=== PATIENT | male | born 1970 | race African-American/Black ===

== ENCOUNTER 2022-03-22 12:47 | Inpatient (IN) | payer MEDICARE, OTHER ==
[~2022-03-22] VITALS: Ht 182.9 cm; Wt 97.1 kg
--- NOTE | 2022-03-22 12:55 | NUR ---
BIBS C/O CHEST PAIN X 3 WEEKS RADIATING TO RIGHT SHOULDER AND JAW. AMBULATORY, PLACED ON BED, AAOX4, BREATHING EVEN AND UNLABORED, SATURATING AT 97%RA, ATTACHED TO MONITOR SHOWS NORMAL SINUS RHYTHYM IA-78.
--- NOTE | 2022-03-22 13:06 | NUR ---
TO ER 13 FOR MD BOYKIN,EKG,MONITOR
--- NOTE | 2022-03-22 13:23 | NUR ---
SALINE LOCK ESTABLISHED, BLOOD DRAWN AND SENT TO LAB
[2022-03-22 13:30] LABS: BASOPHILS % (AUTO) 0.6 % (0.0-2.0); EOSINOPHILS % (AUTO) 1.8 % (0.0-6.0); HEMATOCRIT 39 % (39-51); HEMOGLOBIN 12.7 g/dL (13.5-17.5); LYMPHOCYTES # (AUTO) 1.6 K/uL (0.8-4.8); LYMPHOCYTES % (AUTO) 35.1 % (20.0-44.0); MEAN CORPUSCULAR HGB CONC 32 g/dl (31.0-36.0); MEAN CORPUSCULAR VOLUME 84 fL (80-96); MONOCYTES # (AUTO) 0.4 K/uL (0.1-1.30); MONOCYTES % (AUTO) 9.1 % (2.0-12.0); NEUTROPHILS # (AUTO) 2.5 K/uL (1.8-8.9); NEUTROPHILS % (AUTO) 53.4 % (43.0-81.0); PLATELET COUNT (AUTO) 237 K/uL (150-450); RED BLOOD CELL COUNT(AUTO) 4.66 MIL/uL (4.5-6.0); WHITE BLOOD COUNT (AUTO) 4.6 K/uL (4.3-11.0)
[2022-03-22 13:45] LABS: CALCIUM, SERUM 9.4 mg/dL (8.5-10.1); CARBON DIOXIDE 28 mmol/L (21-32); CHLORIDE 103 mmol/L (98-107); CREATININE 1.1 mg/dL (0.6-1.3); GLUCOSE 165 mg/dL (74-106); POTASSIUM 3.6 mmol/L (3.5-5.1); SODIUM SERUM 140 mmol/L (136-145); UREA NITROGEN, BLOOD 10 mg/dL (7-18)
[2022-03-22] MEDS ORDERED: MORPHINE SULFATE INJ 4 MG/ML DISP.SYRIN ONE ×2 (13:49→18:27)
[2022-03-22] MEDS ORDERED: CLONIDINE HCL 0.1 MG TABLET ONE (13:49)
--- NOTE | 2022-03-22 13:59 | NUR ---
COVID SWAB DONE AND SENT TO LAB
[2022-03-22] MEDS ORDERED: MORPHINE SULFATE INJ 2 MG/ML DISP.SYRIN IV ONE (14:00)
[2022-03-22] MEDS ORDERED: CLONIDINE HCL 0.1 MG TABLET PO ONE (14:00)
--- NOTE | 2022-03-22 14:39 | NUR ---
CALLED [facility] CARDIOLOGY DR. YEPEZ SPEAKING WITH DR. PABON.
[2022-03-22] MEDS ORDERED: COLE625T14 PO (14:45)
[2022-03-22] MEDS ORDERED: ALBU8.5H8 INH (14:45)
[2022-03-22] MEDS ORDERED: LISI20TA30 PO (14:45)
[2022-03-22] MEDS ORDERED: ASPIRIN 325 MG TABLET ONE (14:56)
--- NOTE | 2022-03-22 14:59 | NUR ---
[facility] CALLED ASSESSMENT DIRECTOR PAGED.
[2022-03-22] MEDS ORDERED: ACETAMINOPHEN 325 MG TABLET PO PRN (15:00)
[2022-03-22] MEDS ORDERED: ASPIRIN 325 MG TABLET PO ONE (15:00)
[2022-03-22] MEDS ORDERED: Z GUARD REMEDY 4 OZ OINT TP PRN (15:00)
[2022-03-22] MEDS ORDERED: MAGNESIUM HYDROXIDE 30 ML UDC PO PRN (15:00)
[2022-03-22] MEDS ORDERED: ZOLPIDEM TARTRATE 5 MG TABLET PO PRN (15:00)
[2022-03-22] MEDS ORDERED: NITROGLYCERIN 0.4 MG/TAB BOTTLE SL ONE (15:00)
--- NOTE | 2022-03-22 15:24 | NUR ---
PATIENT TAKEN TO CT VIA [facility]
[2022-03-22] MEDS ORDERED: NITROGLYCERIN 0.4 MG/TAB BOTTLE ONE (15:54)
[2022-03-22] MEDS ORDERED: ENOXAPARIN SODIUM 40 MG/0.4 ML DISP.SYRIN SQ ONE (15:54)
[2022-03-22] MEDS: ENOXAPARIN SODIUM 40 MG/0.4 ML DISP.SYRIN SQ SCH (15:55)
[2022-03-22] MEDS ORDERED: DEXTROSE 50%-WATER 50 ML DISP.SYRIN IV PRN (16:00)
[2022-03-22] MEDS: LISINOPRIL (20MG) 20 MG TABLET PO SCH (17:00)
[2022-03-22] MEDS ORDERED: LISINOPRIL (20MG) 20 MG TABLET ONE (17:07)
[2022-03-22] MEDS: BLOOD SUGAR DIAGNOSTIC 1 EACH STRIP IN SCH ×2 (17:30→23:25)
[2022-03-22] MEDS: MORPHINE SULFATE INJ 2 MG/ML DISP.SYRIN IV PRN (18:32)
--- NOTE | 2022-03-22 18:44 | NUR ---
DR YEPEZ AT BEDSIDE
--- NOTE | 2022-03-22 19:46 | NUR ---
ROOM 108
--- NOTE | 2022-03-22 20:58 | NUR ---
REPORT GIVEN TO DAMIEN PERKINS 108 FOR MIHIR
--- NOTE | 2022-03-22 21:05 | NUR ---
RN NOTES ADMITTED A 51 Y/O MALE PATIENT FROM ER VIA [facility]. ON ROOM AIR SATING 98% NO SOB NO DISTRESS NOTED AT THIS TIME.WITH IV ACCESS AT R AC # 20 PATENT FLUSHES WELL. VITAL SIGNS TAKEN AND RECORDED AFEBRILE. PATIENT COMPLAIN OF PAIN 0N NECK AND CHEST. BODY ASSESSMENT AND BELONGIN CHECKED AND RECORDED. ALL SAFETY MEASURES IN PLACE AT ALL TIMES. HOB ELEVATED. CALL LIGHT WITHIN REACH. WILL CLOSELY MONITOR TYHE PATIENT CLOSELY
[2022-03-22] MEDS: METOPROLOL TARTRATE 25 MG TABLET PO SCH (21:28)
[2022-03-22] MEDS: INSULIN REGULAR, HUMAN 100 UNIT/ML 3 ML VIAL SQ PRN (23:25)
[2022-03-23] VITALS: BP 108/64
[2022-03-23] MEDS: MORPHINE SULFATE INJ 2 MG/ML DISP.SYRIN IV PRN ×5 (00:24→22:26)
[2022-03-23 04:00] VITALS: BP 98/61
--- NOTE | 2022-03-23 06:49 | NUR ---
RN NOTES PATIENT REMAINS STABLE NO SIGNIFICANT CHANGES IN HEALTH CONDITION. ALL DUE MEDS GIVEN ORDER. ON ROOM AIR SATING 97% NO SOB NO DISTRESS NOTED AT THIS TIME. ALL SAFETY MEASURES IN PLACE AT ALL TIMES. HOB ELEVATED. CALL LIGHT WITHIN REACH. WILL ENDORSED TO MORNING SHIFT FOR MIHIR
[2022-03-23 07:29] LABS: BASOPHILS % (AUTO) 0.9 % (0.0-2.0); EOSINOPHILS % (AUTO) 2.4 % (0.0-6.0); HEMATOCRIT 38 % (39-51); HEMOGLOBIN 12.3 g/dL (13.5-17.5); LYMPHOCYTES # (AUTO) 1.6 K/uL (0.8-4.8); LYMPHOCYTES % (AUTO) 36.9 % (20.0-44.0); MEAN CORPUSCULAR HGB CONC 32 g/dl (31.0-36.0); MEAN CORPUSCULAR VOLUME 85 fL (80-96); MONOCYTES # (AUTO) 0.5 K/uL (0.1-1.30); MONOCYTES % (AUTO) 11.9 % (2.0-12.0); NEUTROPHILS # (AUTO) 2.1 K/uL (1.8-8.9); NEUTROPHILS % (AUTO) 47.9 % (43.0-81.0); PLATELET COUNT (AUTO) 208 K/uL (150-450); RED BLOOD CELL COUNT(AUTO) 4.49 MIL/uL (4.5-6.0); WHITE BLOOD COUNT (AUTO) 4.4 K/uL (4.3-11.0)
--- NOTE | 2022-03-23 07:30 | NUR ---
RN/ OPENING NOTE RECEIVED REPORT FROM NIGHT RN. PATIENT A&OX4 RESTING ON BED. PATIENT SATTING AT 98%B ON ROOM AIR. sr, skin intact. DIET CONSISTENT CARB. IV RAC #20 SL PATENT AND INTACT. ALL SAFETY FALL PRECAUTIONS IN PLACE BED LOCK ON, BED IN LOWEST POSITION, SIDE RAILS UP, BED ALARM ON, CALL LIGHT WITHIN REACH. WILL CONTINUE TO MONITOR.
[2022-03-23 08:00] VITALS: BP 104/66
[2022-03-23] MEDS: BLOOD SUGAR DIAGNOSTIC 1 EACH STRIP IN SCH ×4 (08:24→21:45)
[2022-03-23] MEDS: PANTOPRAZOLE 40 MG VIAL IV SCH (08:25)
[2022-03-23] MEDS: MAG HYDROX/AL HYDROX/SIMETH 30 ML UDC PO PRN (08:28)
[2022-03-23 08:29] LABS: CALCIUM, SERUM 9.4 mg/dL (8.5-10.1); CREATININE 1.1 mg/dL (0.6-1.3); MAGNESIUM 2.3 mg/dL (1.8-2.4); PHOSPHORUS 4.5 mg/dL (2.5-4.9); POTASSIUM 4.1 mmol/L (3.5-5.1)
[2022-03-23 08:35] LABS: THYROID STIMULATING HORMONE 2.009 uIU/mL (0.358-3.74)
[2022-03-23] MEDS: METOPROLOL TARTRATE 25 MG TABLET PO SCH ×2 (09:00→21:32)
[2022-03-23] MEDS ORDERED: ASPIRIN 81 MG TAB.CHEW PO SCH (09:00)
[2022-03-23] MEDS: LISINOPRIL (20MG) 20 MG TABLET PO SCH ×2 (09:00→17:00)
--- NOTE | 2022-03-23 09:44 | NUR ---
RN/ NOTE PATIENT'S MEDICATION LOPRESSOR AND LISINOPRIL DUE TO PATIENT'S BLOOD PRESSURE BEING TO LOW 104/66.
[2022-03-23 12:00] VITALS: BP 104/61
[2022-03-23] MEDS: ENOXAPARIN SODIUM 40 MG/0.4 ML DISP.SYRIN SQ SCH (15:44)
[2022-03-23 16:00] VITALS: BP 109/69
--- NOTE | 2022-03-23 17:37 | NUR ---
RN/NOTE LISINOPRIL HELD DUE TO LOW BLOOD PRESSURE 109/69.
--- NOTE | 2022-03-23 18:59 | NUR ---
RN/NOTE PATIENT IS STABLE NO SIGNS OF DISTRESS. ALL CARE AND QUESTIONS ENDORSED TO MUSHROOM GROWING SUPERVISOR RN.
--- NOTE | 2022-03-23 19:10 | NUR ---
RN NOTES RECEIVED REPORT FROM MORNING RN. PATIENT IN BED A/O X4 ABLE TO MAKE NEEDS KNOWN. ON ROOM AIR SATING 96% NO SOB NO DISTRESS NOTED AT THIS TIME. WITH IV ACCESS AT R AC# 20 PATENT FLUSHES WELL. PATIENT COMPLAINS OF PAIN ON NECK, CHEST AND R ARM. ALL SAFETY MEASURES IN PLACE AT ALL TIMES. HOB ELEVATED. CALL LIGHT WITHIN REACH WILL CLOSELY MONITOR THE PATIENT
[2022-03-23 20:00] VITALS: BP 107/68
[2022-03-23] MEDS: INSULIN REGULAR, HUMAN 100 UNIT/ML 3 ML VIAL SQ PRN (23:10)
[2022-03-24] VITALS: BP 109/65
[2022-03-24 04:00] VITALS: BP 104/69
[2022-03-24] MEDS: MORPHINE SULFATE INJ 2 MG/ML DISP.SYRIN IV PRN ×3 (05:33→22:59)
[2022-03-24 06:23] LABS: BASOPHILS % (AUTO) 0.8 % (0.0-2.0); HEMATOCRIT 36 % (39-51); HEMOGLOBIN 11.7 g/dL (13.5-17.5); LYMPHOCYTES # (AUTO) 1.7 K/uL (0.8-4.8); LYMPHOCYTES % (AUTO) 40.6 % (20.0-44.0); MEAN CORPUSCULAR HGB CONC 33 g/dl (31.0-36.0); MEAN CORPUSCULAR VOLUME 84 fL (80-96); MONOCYTES # (AUTO) 0.5 K/uL (0.1-1.30); MONOCYTES % (AUTO) 12.1 % (2.0-12.0); NEUTROPHILS # (AUTO) 1.8 K/uL (1.8-8.9); NEUTROPHILS % (AUTO) 43.5 % (43.0-81.0); PLATELET COUNT (AUTO) 220 K/uL (150-450); RED BLOOD CELL COUNT(AUTO) 4.23 MIL/uL (4.5-6.0); WHITE BLOOD COUNT (AUTO) 4.1 K/uL (4.3-11.0)
[2022-03-24 06:31] LABS: CALCIUM, SERUM 8.7 mg/dL (8.5-10.1); CREATININE 1.1 mg/dL (0.6-1.3); MAGNESIUM 2.5 mg/dL (1.8-2.4); POTASSIUM 4.5 mmol/L (3.5-5.1)
--- NOTE | 2022-03-24 07:30 | NUR ---
RN/ OPENING NOTE RECEIVED REPORT FROM NIGHT RN. PATIENT A&OX4 RESTING ON BED. PATIENT SATTING AT 99%B ON ROOM AIR. SR, skin intact. DIET CONSISTENT CARB. IV RAC #20 SL PATENT AND INTACT. ALL SAFETY FALL PRECAUTIONS IN PLACE BED LOCK ON, BED IN LOWEST POSITION, SIDE RAILS UP, BED ALARM ON, CALL LIGHT WITHIN REACH. WILL CONTINUE TO MONITOR.
[2022-03-24 08:00] VITALS: BP 114/72
--- NOTE | 2022-03-24 08:00 | NUR ---
RN/NOTE I CALLED THE KITCHEN TO ORDER THE PATIENT A DIFFERENT BREAKFAST HE DID NOT LIKE WHAT WAS OFFERED. PATIENT RECEIVED TWO EXTRA BLANKETS. WILL CONTINUE TO MONITOR.
[2022-03-24] MEDS: BLOOD SUGAR DIAGNOSTIC 1 EACH STRIP IN SCH ×4 (08:16→22:32)
[2022-03-24] MEDS: PANTOPRAZOLE 40 MG VIAL IV SCH (08:17)
[2022-03-24] MEDS: MAG HYDROX/AL HYDROX/SIMETH 30 ML UDC PO PRN (08:18)
[2022-03-24] MEDS: ONDANSETRON HCL/PF 4 MG/2 ML VIAL IVP PRN ×2 (08:18→13:55)
[2022-03-24] MEDS: METOPROLOL TARTRATE 25 MG TABLET PO SCH ×2 (08:22→22:33)
[2022-03-24] MEDS: LISINOPRIL (20MG) 20 MG TABLET PO SCH ×2 (08:22→16:35)
[2022-03-24 12:00] VITALS: BP 119/68
[2022-03-24] MEDS: ENOXAPARIN SODIUM 40 MG/0.4 ML DISP.SYRIN SQ SCH (15:08)
[2022-03-24 16:00] VITALS: BP 116/67
--- NOTE | 2022-03-24 18:40 | NUR ---
RN/NOTE PATIENT IS STABLE NO SIGNS OF DISTRESS. ALL CARE AND QUESTIONS ENDORSED TO DIRECTOR OF CHANNEL MARKETING RN.
--- NOTE | 2022-03-24 19:44 | NUR ---
DIESEL TRAILER MECHANIC OPENING NOTE RECEIVED PT ON BED AWAKE, A&O X4. ON ROOM AIR TOLERATING WELL. IV ACCESS ON RAC #20 SL DISLODGED. WILL ATTEMPT TO START A NEW LINE. NO S/SX OF RESPIRATORY DISTRESS NOTED. ALL SAFETY PRECAUTIONS IN PLACE, BED LOCKED AND IN LOWEST POSITION, SIDE RAILS UP, BED ALARM ON, CALL LIGHT WITHIN REACH. WILL CONTINUE TO MONITOR THROUGHOUT THE SHIFT.
[2022-03-24 20:00] VITALS: BP 115/70
--- NOTE | 2022-03-24 22:30 | NUR ---
RN NOTE NEW IV ACCES OBTAINED ON THE LFA #22G, INTACT, PATENT, AND FLUSHING WELL. PATIENT TOLERATING WELL. WILL CONTINUE TO MONITOR.
--- NOTE | 2022-03-24 23:00 | NUR ---
RN NOTE 2200 BS CHECKED AT 124 MG/DL, NO COVERAGE GIVEN PER SLIDING SCALE, WILL CONTINUE TO MONITOR PATIENT.
[2022-03-25] VITALS: BP 110/65
[2022-03-25 04:00] VITALS: BP 124/79
--- NOTE | 2022-03-25 06:30 | NUR ---
RANGE FEEDER CLOSING NOTE PATIENT REMAINS ON BED SLEEPING BUT EASILY AROUSABLE TO TOUCH AND VOICE, A&O X4. ON ROOM AIR TOLERATING WELL. IV ACCESS ON LFA #22G INTACT, PATENT AND FLUSHING WELL. NO COMPLAINTS AT THIS TIME, NO S/SX OF RESPIRATORY DISTRESS NOTED. ON TELE MONITORING CURRENTLY READIND SR AT 72, ALL SAFETY PRECAUTIONS IN PLACE, ALL DUE MEDS GIVEN, KEPT DRY AND CLEAN, BED LOCKED AND IN LOWEST POSITION, SIDE RAILS UP, BED ALARM ON, CALL LIGHT WITHIN REACH. WILL ENDORSE TO AM SHIFT NURSE.
[2022-03-25 07:01] LABS: BASOPHILS % (AUTO) 0.6 % (0.0-2.0); EOSINOPHILS % (AUTO) 3.1 % (0.0-6.0); HEMATOCRIT 37 % (39-51); HEMOGLOBIN 12.2 g/dL (13.5-17.5); LYMPHOCYTES # (AUTO) 1.5 K/uL (0.8-4.8); LYMPHOCYTES % (AUTO) 34.4 % (20.0-44.0); MEAN CORPUSCULAR HGB CONC 33 g/dl (31.0-36.0); MEAN CORPUSCULAR VOLUME 84 fL (80-96); MONOCYTES # (AUTO) 0.6 K/uL (0.1-1.30); MONOCYTES % (AUTO) 14.9 % (2.0-12.0); PLATELET COUNT (AUTO) 216 K/uL (150-450); RED BLOOD CELL COUNT(AUTO) 4.43 MIL/uL (4.5-6.0); WHITE BLOOD COUNT (AUTO) 4.3 K/uL (4.3-11.0)
--- NOTE | 2022-03-25 07:30 | NUR ---
RN/ OPENING NOTE RECEIVED REPORT FROM NIGHT RN. PATIENT A&OX4 RESTING ON BED. PATIENT SATTING AT 98% ON ROOM AIR. SR, skin intact. DIET NPO FOR CT CARDIO AFTER CONSISTENT CARB. IV LAC #22 SL PATENT AND INTACT. ALL SAFETY FALL PRECAUTIONS IN PLACE BED LOCK ON, BED IN LOWEST POSITION, SIDE RAILS UP, BED ALARM ON, CALL LIGHT WITHIN REACH. WILL CONTINUE TO MONITOR.
[2022-03-25 07:31] LABS: CALCIUM, SERUM 8.8 mg/dL (8.5-10.1); CREATININE 1.1 mg/dL (0.6-1.3); MAGNESIUM 2.5 mg/dL (1.8-2.4); POTASSIUM 4.5 mmol/L (3.5-5.1)
[2022-03-25] MEDS: MORPHINE SULFATE INJ 2 MG/ML DISP.SYRIN IV PRN ×3 (07:40→22:07)
[2022-03-25] MEDS: BLOOD SUGAR DIAGNOSTIC 1 EACH STRIP IN SCH ×4 (07:40→23:40)
--- NOTE | 2022-03-25 07:45 | NUR ---
RN/NOTE I CALLED RADIOLOGY TO SEE IF THE CT CARDIO WILL BE DONE AND I WAS INFORMED THAT THE TECH IS NOT HERE TODAY SO IT WILL BE DONE WHEN HE RETURNS. PATIENT WAS GIVEN HIS BREAKFAST AND NEW ICE, ICE WATER, AND JUICE.
[2022-03-25 08:00] VITALS: BP 113/58
--- NOTE | 2022-03-25 08:18 | NUR ---
RN/NOTE TOO FARRELL REPORTED. PATIENT HAD HIS VITALS TAKEN TEMPERATURE, HEART RATE, RESPIRATIONS, AND SPO2 WAS OBTAINED. THE BLOOD PRESSURE WAS HURTING HIM SO HE ASKED FOR THE CUFF TO BE REMOVED. ANOTHER ATTEMPT WAS MADE BUT THE PATIENT REFUSED. I WILL REATTEMPT THE BLOOD PRESSURE AGAIN IN A LITTLE BIT.
[2022-03-25] MEDS: LISINOPRIL (20MG) 20 MG TABLET PO SCH ×2 (08:47→17:50)
[2022-03-25] MEDS: METOPROLOL TARTRATE 25 MG TABLET PO SCH ×2 (08:47→21:04)
[2022-03-25] MEDS: PANTOPRAZOLE 40 MG TABLET.DR PO SCH (08:48)
[2022-03-25 12:00] VITALS: BP 116/71
[2022-03-25] MEDS ORDERED: METO25TA20 PO (12:58)
[2022-03-25] MEDS ORDERED: PANT40TA49 PO (12:58)
[2022-03-25] MEDS ORDERED: METF-440 PO (12:58)
[2022-03-25] MEDS ORDERED: IV NS 0.9% 250 ML IV ONE (14:50)
[2022-03-25] MEDS ORDERED: IOHEXOL-350 100 ML VIAL IV ONE (14:50)
--- NOTE | 2022-03-25 14:54 | NUR ---
RN/NOTE PATIENT LEFT THE FLOOR FOR CT ANGIO. PATIENT STABLE NO SIGNS OF DISTRESS.
[2022-03-25] MEDS: ENOXAPARIN SODIUM 40 MG/0.4 ML DISP.SYRIN SQ SCH (15:00)
--- NOTE | 2022-03-25 15:15 | NUR ---
RN/NOTE PATIENT NOT ON THE FLOOR FOR MEDICATION.
[2022-03-25] MEDS ORDERED: NITROGLYCERIN 0.4 MG/TAB BOTTLE SL PRN (15:30)
[2022-03-25] MEDS ORDERED: METOPROLOL TARTRATE INJ 5 MG/5 ML AMPUL IVP PRN (15:30)
[2022-03-25 16:00] VITALS: BP 116/71
--- NOTE | 2022-03-25 16:00 | NUR ---
RN/NOTE PATIENT RETURNED TO THE FLOOR. DOCTOR CAME AND EXPLAINED THE RESULTS OF THE CT ANGIOGRAM. DOCTOR ALSO EXPLAINED DIFFERENT FOLLOW UP DOCTORS HE MAY BE ABLE TO GO TO. CASE MANAGEMENT IS WORKING TO FIND PLACEMENT FOR THE PATIENT.
--- NOTE | 2022-03-25 16:20 | NUR ---
RN/NOTE AFTER CT ANGIO GRAM. RADIOLOGY GAVE INSTRUCTIONS TO NOT ADMINISTER METFORMIN FOR 2 DAYS.
--- NOTE | 2022-03-25 16:20 | NUR ---
RN/ NOTE PATIENT WAS PROVIDED WITH NEW ICE WATER, ICE, SNACKS PUDDING, AND GRAM CRACKERS.
[2022-03-25] MEDS: ONDANSETRON HCL/PF 4 MG/2 ML VIAL IVP PRN (17:49)
--- NOTE | 2022-03-25 18:51 | NUR ---
RN/ CLOSING NOTE REPORT GIVEN TO NIGHT RN. PATIENT STABLE NO SIGNS OF DISTRESS, ALL SAFETY FALL PRECAUTIONS IN PLACE BED LOCK ON, BED IN LOWEST POSITION, SIDE RAILS UP, BED ALARM ON, CALL LIGHT WITHIN REACH. ALL QUESTIONS ANSWERED. INSTRUCTIONS FROM RADIOLOGY NOT TO GIVE [id number] FOR 2 DAYS.
--- NOTE | 2022-03-25 19:39 | NUR ---
COTTON INSPECTOR OPENING NOTE RECEIVED PT ON BED AWAKE, A&O X4. ABLE TO MAKE NEEDS KNOWN, ON ROOM AIR TOLERATING WELL. WITH IV ACCESS ON RAC #18G INTACT, PATENT, AND FLUSHING WELL, NO S/SX OF RESPIRATORY DISTRESS NOTED. ALL SAFETY PRECAUTIONS IN PLACE, BED LOCKED AND IN LOWEST POSITION, SIDE RAILS UP, BED ALARM ON, CALL LIGHT WITHIN REACH. WILL CONTINUE TO MONITOR THROUGHOUT THE SHIFT.
[2022-03-25 20:00] VITALS: BP 92/52
[2022-03-26] VITALS: BP 92/52
[2022-03-26 04:00] VITALS: BP 91/49
--- NOTE | 2022-03-26 06:57 | NUR ---
SENIOR ESCROW OFFICER CLOSING NOTE PATIENT REMAINS ON BED SLEEPING BUT EASILY AROUSABLE TO TOUCH AND VOICE, A&O X4. ON ROOM AIR TOLERATING WELL. IV ACCESS ON LFA #22G INTACT, PATENT AND FLUSHING WELL. NO S/SX OF RESPIRATORY DISTRESS NOTED. ON TELE MONITORING CURRENTLY READIND SR AT 72, ALL SAFETY PRECAUTIONS IN PLACE, ALL DUE MEDS GIVEN, KEPT DRY AND CLEAN, BED LOCKED AND IN LOWEST POSITION, SIDE RAILS UP, BED ALARM ON, CALL LIGHT WITHIN REACH. PATIENT COMPLAINING OF SEVERE PAIN ON THE R SHOULDER RATED 8/10 ON PAIN SCALE. MORPHINE GIVEN PRN ORDER. WILL ENDORSE TO AM SHIFT NURSE.
[2022-03-26] MEDS: MORPHINE SULFATE INJ 2 MG/ML DISP.SYRIN IV PRN ×2 (07:05→11:12)
--- NOTE | 2022-03-26 07:26 | NUR ---
RN OPENING NOTE RECEIVED PT ON BED AWAKE, A&O X4. ABLE TO MAKE NEEDS KNOWN, ON ROOM AIR TOLERATING WELL. WITH IV ACCESS ON RAC #18G INTACT, PATENT, AND FLUSHING WELL, NO S/SX OF RESPIRATORY DISTRESS NOTED. ALL SAFETY PRECAUTIONS IN PLACE, BED LOCKED AND IN LOWEST POSITION, SIDE RAILS UP, BED ALARM ON, CALL LIGHT WITHIN REACH.
[2022-03-26 08:00] VITALS: BP 118/76
[2022-03-26] MEDS: PANTOPRAZOLE 40 MG TABLET.DR PO SCH (09:31)
[2022-03-26] MEDS: BLOOD SUGAR DIAGNOSTIC 1 EACH STRIP IN SCH ×2 (09:31→11:11)
[2022-03-26] MEDS: METOPROLOL TARTRATE 25 MG TABLET PO SCH (09:31)
[2022-03-26] MEDS: LISINOPRIL (20MG) 20 MG TABLET PO SCH (09:32)
[2022-03-26] MEDS: INSULIN REGULAR, HUMAN 100 UNIT/ML 3 ML VIAL SQ PRN (11:12)
[2022-03-26 12:00] VITALS: BP 111/78
[2022-03-26] MEDS ORDERED: HYDROCODONE/APAP 5/325MG TABLET PO PRN ×2 (12:00→12:30)
--- NOTE | 2022-03-26 13:25 | NUR ---
RN NOTE PER DR Hugh BAUMANN FOR GABAPENTING TO BE SWITCHED TO FEXERIL 5MG TID ORDERS PLACED
--- NOTE | 2022-03-26 14:14 | NUR ---
RN NOTE REPORT CALLED IN TO REINALDO MILIAN RN. PATIENT LEFT WITH EMT IN STABLE CONDITION ALL DISCHARGE INSTRUCTIONS GIVEN TO PATIENT NO FURTHER QUESTIONS.
[2022-03-26] MEDS ORDERED: CYCLOBENZAPRINE 10 MG TABLET PO SCH (17:00)
== END 2022-03-26 14:43 | DRG 552 ==
LOC: ER 12:49 → TRANSITION 15:10 → TELE1 20:22
PROVIDERS: ADMIT Nurse Practitioner Acute Care; ATTEND Internal Medicine
DX: M48.02 Spinal stenosis, cervical region (principal); M48.52XA Collapsed vertebra, not elsewhere classified, cervical region, initial encounter for fracture; M54.12 Radiculopathy, cervical region; J45.909 Unspecified asthma, uncomplicated; I10 Essential (primary) hypertension; Z88.6 Allergy status to analgesic agent; Z91.012 Allergy to eggs; Z88.0 Allergy status to penicillin; Z91.048 Other nonmedicinal substance allergy status; Z79.51 Long term (current) use of inhaled steroids; Z79.899 Other long term (current) drug therapy; E78.5 Hyperlipidemia, unspecified; Z98.890 Other specified postprocedural states; E11.42 Type 2 diabetes mellitus with diabetic polyneuropathy; R07.89 Other chest pain; I25.10 Atherosclerotic heart disease of native coronary artery without angina pectoris; Z98.1 Arthrodesis status
CPT/HCPCS: 36415; 70450-TC; 70490-TC; 71045-TC; 72141-TC; 75574; 80048-TC; 80061-TC; 82962-TC; 83735-TC; 84100-TC; 84443-TC; 84484-TC; 85025-TC; 87081-TC; 93307-TC; 97116-TC; 97530-TC; C9113; G0378; J1650; J1815; J2270; J2405; J7050; Q9967

== ENCOUNTER 2022-06-03 21:40 | Inpatient (IN) | payer MEDICARE, OTHER ==
[~2022-06-03] VITALS: Ht 185.4 cm; Wt 95.3 kg
[~2022-06-03 21:40] MED LIST: ALBU8.5H8 INH; COLE625T14 PO; LISI20TA30 PO; METF-440 PO; METO25TA20 PO; PANT40TA49 PO
--- NOTE | 2022-06-03 21:45 | NUR ---
MARYRA 59 FROM SNF FOR L CALF PAIN X 2 DAYS AND CP X 3 HOURS. PATIENT IS AAOX4. ABLE TO MAKE NEEDS KNOWN. ATTACHED TO MONITOR. VITALS CHECKED.
--- NOTE | 2022-06-03 22:03 | NUR ---
EKG DONE AT BEDSIDE
--- NOTE | 2022-06-03 22:10 | NUR ---
LAC #20G S/L BLOOD COLLECTED AND SENT TO LAB
--- NOTE | 2022-06-03 22:12 | NUR ---
WHITLEY SANCHEZ AT BEDSIDE
[2022-06-03] MEDS ORDERED: CT SWABBABLE VALVE TRANS SET 1 EA INFUS.SET MC ONE ×2 (22:14→22:44)
[2022-06-03] MEDS ORDERED: IOHEXOL-350 100 ML VIAL IV ONE ×2 (22:14→22:44)
[2022-06-03] MEDS ORDERED: IV NS 0.9% 250 ML IV ONE ×2 (22:14→22:44)
[2022-06-03 22:20] LABS: BASOPHILS % (AUTO) 0.8 % (0.0-2.0); HEMATOCRIT 37 % (39-51); LYMPHOCYTES # (AUTO) 1.7 K/uL (0.8-4.8); LYMPHOCYTES % (AUTO) 35.8 % (20.0-44.0); MEAN CORPUSCULAR HGB CONC 32 g/dl (31.0-36.0); MEAN CORPUSCULAR VOLUME 84 fL (80-96); MONOCYTES # (AUTO) 0.6 K/uL (0.1-1.30); MONOCYTES % (AUTO) 11.8 % (2.0-12.0); NEUTROPHILS # (AUTO) 2.3 K/uL (1.8-8.9); NEUTROPHILS % (AUTO) 48.6 % (43.0-81.0); PLATELET COUNT (AUTO) 230 K/uL (150-450); RED BLOOD CELL COUNT(AUTO) 4.42 MIL/uL (4.5-6.0); WHITE BLOOD COUNT (AUTO) 4.7 K/uL (4.3-11.0)
--- NOTE | 2022-06-03 22:28 | NUR ---
COVID SWAB DONE AND SENT TO LAB
[2022-06-03 22:31] LABS: CALCIUM, SERUM 8.7 mg/dL (8.5-10.1); CARBON DIOXIDE 30 mmol/L (21-32); CHLORIDE 103 mmol/L (98-107); CREATININE 0.9 mg/dL (0.6-1.3); GLUCOSE 99 mg/dL (74-106); SODIUM SERUM 141 mmol/L (136-145); UREA NITROGEN, BLOOD 5 mg/dL (7-18)
--- NOTE | 2022-06-03 22:42 | NUR ---
TROP 95
[2022-06-03] MEDS ORDERED: NITROGLYCERIN 0.4 MG/TAB BOTTLE ONE (23:23)
[2022-06-03] MEDS ORDERED: NITROGLYCERIN 0.4 MG/TAB BOTTLE SL ONE (23:30)
--- NOTE | 2022-06-03 23:36 | NUR ---
PATIENT STILL HAS CHEST PAIN BUT REFUSED NITRO SL. RISK AND BENEFITS EXPLAINED BUT STILL REFUSED. MD MADE AWARE
--- NOTE | 2022-06-04 02:30 | NUR ---
SEEN BY MICHI CERVANTES AT BEDSIDE
--- NOTE | 2022-06-04 06:15 | NUR ---
PATIENT COMPLAINING OF CHEST AND LEG PAIN. SCALE OF 9/10. COMPLAINTS BEING FORWARDED TO TAX COMPLIANCE REPRESENTATIVE BILLY. WAITING FOR FURTHER ORDER.
[2022-06-04] MEDS ORDERED: DEXTROSE 50%-WATER 50 ML DISP.SYRIN IV PRN (07:00)
[2022-06-04] MEDS ORDERED: NITROGLYCERIN 0.4 MG/TAB BOTTLE SL PRN ×2 (07:00→23:00)
[2022-06-04] MEDS ORDERED: ZOLPIDEM TARTRATE 5 MG TABLET PO PRN (07:00)
[2022-06-04] MEDS ORDERED: ACETAMINOPHEN 325 MG TABLET PO PRN ×2 (07:00→23:00)
[2022-06-04] MEDS ORDERED: ONDANSETRON HCL/PF 4 MG/2 ML VIAL IVP PRN (07:00)
[2022-06-04] MEDS ORDERED: MAGNESIUM HYDROXIDE 30 ML UDC PO PRN (07:00)
[2022-06-04] MEDS ORDERED: MAG HYDROX/AL HYDROX/SIMETH 30 ML UDC PO PRN (07:00)
[2022-06-04] MEDS ORDERED: Z GUARD REMEDY 4 OZ OINT TP PRN (07:00)
[2022-06-04] MEDS ORDERED: MORPHINE SULFATE INJ 4 MG/ML DISP.SYRIN ONE (07:17)
[2022-06-04] MEDS: MORPHINE SULFATE INJ 4 MG/ML DISP.SYRIN IV PRN ×3 (07:18→19:02)
[2022-06-04] MEDS ORDERED: DIPH25CA51 PO (07:43)
[2022-06-04] MEDS ORDERED: CYCL5TAB PO (07:43)
[2022-06-04] MEDS ORDERED: GLUC1KIT IM (07:43)
[2022-06-04] MEDS ORDERED: HYDR-4303 PO (07:43)
[2022-06-04] MEDS ORDERED: OMEG1CAP PO (07:43)
[2022-06-04] MEDS ORDERED: MULT-447 PO (07:43)
[2022-06-04] MEDS ORDERED: ATOR40TA PO (07:43)
[2022-06-04] MEDS ORDERED: CHOL400T PO (07:43)
[2022-06-04] MEDS ORDERED: METO25TA20 PO (07:43)
[2022-06-04] MEDS ORDERED: DOCU-141 PO (07:43)
[2022-06-04] MEDS ORDERED: NITR0.4T48 SL (07:43)
[2022-06-04] MEDS ORDERED: OXYC5TAB3 PO (07:43)
[2022-06-04] MEDS ORDERED: METF-440 PO (07:43)
[2022-06-04] MEDS ORDERED: ACET-868 PO (07:43)
[2022-06-04] MEDS ORDERED: LIDO30AD10 TP (07:43)
[2022-06-04] MEDS ORDERED: MAGN400O6 PO (07:43)
[2022-06-04] MEDS ORDERED: BISA10SU11 RC (07:43)
[2022-06-04] MEDS ORDERED: NA P133E RC (07:43)
[2022-06-04] MEDS ORDERED: POLY17PO4 PO (07:43)
[2022-06-04] MEDS: BLOOD SUGAR DIAGNOSTIC 1 EACH STRIP IN SCH ×4 (07:55→21:56)
[2022-06-04 08:23] LABS: BASOPHILS % (AUTO) 1.1 % (0.0-2.0); EOSINOPHILS % (AUTO) 3.5 % (0.0-6.0); HEMATOCRIT 37 % (39-51); HEMOGLOBIN 11.9 g/dL (13.5-17.5); LYMPHOCYTES # (AUTO) 1.4 K/uL (0.8-4.8); LYMPHOCYTES % (AUTO) 36.8 % (20.0-44.0); MEAN CORPUSCULAR HGB CONC 33 g/dl (31.0-36.0); MEAN CORPUSCULAR VOLUME 84 fL (80-96); MONOCYTES # (AUTO) 0.5 K/uL (0.1-1.30); MONOCYTES % (AUTO) 13.7 % (2.0-12.0); NEUTROPHILS # (AUTO) 1.8 K/uL (1.8-8.9); NEUTROPHILS % (AUTO) 44.9 % (43.0-81.0); PLATELET COUNT (AUTO) 231 K/uL (150-450); RED BLOOD CELL COUNT(AUTO) 4.34 MIL/uL (4.5-6.0); WHITE BLOOD COUNT (AUTO) 3.9 K/uL (4.3-11.0)
--- NOTE | 2022-06-04 08:30 | NUR ---
REPORT GIVEN TO GERRI
--- NOTE | 2022-06-04 08:46 | NUR ---
MOVE TO ROOM SAFELY
[2022-06-04] MEDS: ASPIRIN 81 MG TAB.CHEW PO SCH ×2 (09:00→10:56)
--- NOTE | 2022-06-04 09:00 | NUR ---
CASTING HOUSE LABORER NOTES RECEIVED PT FROM E.R. STAFF VIA LEN, PT IS AWAKE, ALERT AND ORIENTED, STILL WITH COMPLAINT OF LEG PAIN RADIATING TO CHEST, PT ABLE TO AMBULATE WITH STEADY GAIT, ROOM SET UP ORIENTATION PROVIDED, VERBALIZED UNDERSTANDING, PT TRANSFERRED FROM ROOM 315-2 TO 325-2 PER PT REQUEST, ON TELE MONITORING, NEEDS ATTENDED, CALL LIGHT WITHIN REACH.
[2022-06-04 09:30] VITALS: BP 135/92
[2022-06-04 09:35] VITALS: BP 135/92
[2022-06-04 09:35] LABS: THYROID STIMULATING HORMONE 1.44 uIU/mL (0.358-3.74)
[2022-06-04 10:17] LABS: CALCIUM, SERUM 9.2 mg/dL (8.5-10.1); MAGNESIUM 2.2 mg/dL (1.8-2.4)
[2022-06-04] MEDS: PANTOPRAZOLE 40 MG VIAL IV SCH (10:54)
[2022-06-04] MEDS: METOPROLOL TARTRATE 25 MG TABLET PO SCH ×2 (10:56→20:14)
[2022-06-04] MEDS: LISINOPRIL (20MG) 20 MG TABLET PO SCH ×2 (10:56→17:00)
[2022-06-04 16:00] VITALS: BP 98/64
--- NOTE | 2022-06-04 18:49 | NUR ---
COMMUNICATIONS PROGRAMMER NOTES PT IN BED, SLEEPS INTERMITTENTLY, NO COMPLAINT AT THIS TIME, ABLE TO WALK TO THE BATHROOM WITH SLOW AND STEADY GAIT, SEEN BY DR. COTTON TODAY, PLAN OF CARE DISCUSSED WITH PT, VERBALIZED UNDERSTANDING, TOLERATES CURRENT DIET, ALL NEEDS ATTENDED.
--- NOTE | 2022-06-04 19:30 | NUR ---
TAFE TEACHER OPENING NOTES RECEIVED PATIENT LAYING IN BED AWAKE, HOB ELEVATED. A/O X4. BREATHING EVEN AND NON-LABORED ON ROOM AIR. NOT IN APPARENT DISTRESS. DENIES PAIN AT THIS TIME, VERBALIZED HE JUST RECEIVED MORPHINE. ON TELE MONITOR READING SINUS RHYTHM/BRADYCARDIA AT 56-61 BPM. HAS LEFT ANTECUBITAL IV ACCESS #20G AND SALINE LOCKED. NO S/S OF INFILTRATION NOTED. SKIN INTACT PER PATIENT. HE ALSO MENTIONED HE WILL HAVE SURGERY IN THE RIGHT SIDE OF HIS NECK. SAFETY PRECAUTIONS IN PLACE: BED LOW AND LOCKED, SIDE RAILS UP X2, CALL LIGHT WITHIN REACH. WILL CONTINUE POC.
[2022-06-04 20:00] VITALS: BP 108/62
[2022-06-04] MEDS: INSULIN REGULAR, HUMAN 100 UNIT/ML 3 ML VIAL SQ PRN (21:57)
--- NOTE | 2022-06-04 21:57 | NUR ---
CNC LATHE PROGRAMMER NOTES BS 147, PATIENT REFUSED INSULIN AND MENTIONED HE IS TAKING METFORMIN. EXPLAINED RISKS AND BENEFITS, STILL REFUSED.
[2022-06-04] MEDS ORDERED: NA PHOS,M-B/NA PHOS,DI-BA 1 EA ENEMA RC PRN (23:00)
[2022-06-04] MEDS ORDERED: diphenhydrAMINE HCL 25 MG CAPSULE PO PRN (23:00)
[2022-06-04] MEDS ORDERED: BISACODYL SUPP (10 MG) 10 MG/SUPP.RECT SUPP.RECT RC PRN (23:00)
[2022-06-05] VITALS: BP 92/55
[2022-06-05] MEDS: MORPHINE SULFATE INJ 4 MG/ML DISP.SYRIN IV PRN ×2 (03:55→10:56)
[2022-06-05 04:00] VITALS: BP 105/59
--- NOTE | 2022-06-05 04:00 | NUR ---
MATRIX WORKER NOTES PATIENT C/O PAIN ON THE LEFT LEG RADIATING TO CHEST AND NECK 02/20. ADMINISTERED PRN MORPHINE. WILL CONTINUE PAIN MGT.
[2022-06-05] MEDS: BLOOD SUGAR DIAGNOSTIC 1 EACH STRIP IN SCH ×2 (06:53→12:15)
[2022-06-05] MEDS: INSULIN REGULAR, HUMAN 100 UNIT/ML 3 ML VIAL SQ PRN (06:54)
--- NOTE | 2022-06-05 06:54 | NUR ---
PHOTOGEOLOGIST NOTES BS 94, NO INSULIN COVERAGE GIVEN.
--- NOTE | 2022-06-05 07:10 | NUR ---
PROOF LOAD MECHANIC CLOSING NOTES PATIENT LAYING COMFORTABLY IN BED. ABLE TO VERBALIZE NEEDS. PROVIDED WITH FWW TO USE WHEN USING THE BATHROOM. STABLE THROUGHOUT THE SHIFT. NO CARDIAC OR RESPIRATORY DISTRESS. AFEBRILE. ON TELE MONITOR READING SINUS RHYTHM AT 73 BPM, BRADYCARDIC MOST OF THE TIME. LEFT ANTECUBITAL IV ACCESS INTACT, PATENT AND FLUSHING. ALL DUE MEDS GIVEN AND NEEDS ATTENDED. SEEN BY DR. MEADOWS, CLEARED FOR D/C. SAFETY PRECAUTIONS MAINTAINED. WILL ENDORSE TO NEXT SHIFT FOR MIHIR.
[2022-06-05 07:12] LABS: BASOPHILS % (AUTO) 0.9 % (0.0-2.0); EOSINOPHILS % (AUTO) 2.5 % (0.0-6.0); HEMATOCRIT 38 % (39-51); HEMOGLOBIN 12.4 g/dL (13.5-17.5); LYMPHOCYTES # (AUTO) 1.7 K/uL (0.8-4.8); LYMPHOCYTES % (AUTO) 37.8 % (20.0-44.0); MEAN CORPUSCULAR HGB CONC 33 g/dl (31.0-36.0); MEAN CORPUSCULAR VOLUME 84 fL (80-96); MONOCYTES # (AUTO) 0.6 K/uL (0.1-1.30); MONOCYTES % (AUTO) 12.6 % (2.0-12.0); NEUTROPHILS % (AUTO) 46.2 % (43.0-81.0); PLATELET COUNT (AUTO) 247 K/uL (150-450); RED BLOOD CELL COUNT(AUTO) 4.53 MIL/uL (4.5-6.0); WHITE BLOOD COUNT (AUTO) 4.4 K/uL (4.3-11.0)
--- NOTE | 2022-06-05 07:30 | NUR ---
LAP GRINDER NOTES PT IN BED, AWAKE, ALERT AND ORIENTED, NO COMPLAINT OF PAIN OR ANY DISCOMFORT, RESPIRATIONS NORMAL, CALL LIGHT WITHIN REACH, NEEDS ATTENDED.
[2022-06-05 08:00] VITALS: BP 119/71
[2022-06-05 08:12] LABS: CREATININE 0.9 mg/dL (0.6-1.3); MAGNESIUM 2.6 mg/dL (1.8-2.4); POTASSIUM 4.1 mmol/L (3.5-5.1)
[2022-06-05] MEDS: LIDOCAINE 5% (PATCH) 1 EA PATCH TP SCH ×2 (09:00→09:54)
[2022-06-05] MEDS ORDERED: CHOLECALCIFEROL (VITAMIN D 3) 400 UNIT TABLET PO SCH (09:00)
[2022-06-05] MEDS ORDERED: LISINOPRIL (20MG) 20 MG TABLET PO SCH ×2 (09:00)
[2022-06-05] MEDS: ASPIRIN 81 MG TAB.CHEW PO SCH (09:00)
[2022-06-05] MEDS: METOPROLOL TARTRATE 25 MG TABLET PO SCH ×2 (09:00→09:54)
[2022-06-05] MEDS ORDERED: DOCUSATE SODIUM 100 MG CAPSULE PO SCH (09:00)
[2022-06-05] MEDS: PANTOPRAZOLE 40 MG VIAL IV SCH (09:50)
[2022-06-05] MEDS: LISINOPRIL (20MG) 20 MG TABLET PO SCH (09:52)
[2022-06-05 12:00] VITALS: BP 114/65
--- NOTE | 2022-06-05 17:43 | NUR ---
FAN ENGINE ENGINEER NOTES PT IN BED, AWAKE, ALERT AND ORIENTED, NO COMPLAINT OF PAIN, NOT IN DISTRESS, CALL LIGHT WITHIN REACH, SEEN AND EXAMINED BY DR. COTTON, DISCHARGE ORDER GIVEN, DISCHARGE AND MEDICATION INSTRUCTIONS PROVIDED TO PT, VERBALIZED UNDERSTANDING, ALL BELONGINGS ACCOUNTED FOR INCLUDING HIS CELLPHONE AND LAPTOP, REPORT GIVEN TO NURSE FORWARD AIR CONTROLLER/AIR OFFICER ON DUTY AT [facility], PICKED UP BY 2 AMBULANCE PERSONNEL, LEFT VIA GUERNEY IN STABLE CONDITION.
[2022-06-05] MEDS ORDERED: ATORVASTATIN 40 MG TABLET PO SCH (22:00)
[2022-06-06] MEDS ORDERED: PANTOPRAZOLE 40 MG TABLET.DR PO SCH (07:30)
== END 2022-06-05 17:39 | DRG 74 ==
LOC: ER 21:42 → TRANSITION 06-04 02:22 → TELE 06-04 07:43
PROVIDERS: ADMIT Nurse Practitioner Acute Care; ATTEND Nurse Practitioner Acute Care
DX: M54.12 Radiculopathy, cervical region (principal); M48.02 Spinal stenosis, cervical region; Z20.822 Contact with and (suspected) exposure to COVID-19; E78.5 Hyperlipidemia, unspecified; I25.2 Old myocardial infarction; I25.10 Atherosclerotic heart disease of native coronary artery without angina pectoris; I10 Essential (primary) hypertension; E11.40 Type 2 diabetes mellitus with diabetic neuropathy, unspecified; J45.909 Unspecified asthma, uncomplicated; Z88.0 Allergy status to penicillin; Z88.8 Allergy status to other drugs, medicaments and biological substances; Z88.1 Allergy status to other antibiotic agents; Z91.012 Allergy to eggs; Z79.84 Long term (current) use of oral hypoglycemic drugs; Z79.899 Other long term (current) drug therapy; Z79.51 Long term (current) use of inhaled steroids; K46.9 Unspecified abdominal hernia without obstruction or gangrene
CPT/HCPCS: 36415; 71045-TC; 80048-TC; 80061-TC; 82962-TC; 83540-TC; 83735-TC; 84443-TC; 84484-TC; 85025-TC; 87081-TC; 93970-TC; 93971-TC; C9113; C9803; G0378; J2270; J7050; Q9967

== ENCOUNTER → 2022-08-15 | Day surgery (SDC) | payer MEDICARE, OTHER ==
[~2022-08-15] MED LIST changes: +ACET-868 PO; -ALBU8.5H8 INH; +ATOR40TA PO; +BISA10SU11 RC; +CHOL400T PO; -COLE625T14 PO; +CT SWABBABLE VALVE TRANS SET 1 EA INFUS.SET MC ONE; +CYCL5TAB PO; +DIPH25CA51 PO; +DOCU-141 PO; +GLUC1KIT IM; +HYDR-4303 PO; +IOHEXOL-350 100 ML VIAL IV ONE; +IV NS 0.9% 250 ML IV ONE; +LIDO30AD10 TP; +MAGN400O6 PO; +METOPROLOL TARTRATE INJ 5 MG/5 ML AMPUL ONE; +MULT-447 PO; +NA P133E RC; +NITR0.4T48 SL; +NITROGLYCERIN 0.4 MG/TAB BOTTLE ONE; +OMEG1CAP PO; +OXYC5TAB3 PO; -PANT40TA49 PO; +POLY17PO4 PO
== END | disposition home or self-care (01) ==
LOC: CT 09:10
PROVIDERS: ATTEND Internal Medicine Interventional Cardiology
DX: I65.22 Occlusion and stenosis of left carotid artery (principal); I25.10 Atherosclerotic heart disease of native coronary artery without angina pectoris
CPT/HCPCS: 75574; J3490 ×3; J7050; Q9967